=== PATIENT | female | born 1950 | race American Indian/Alaskan Native ===

== ENCOUNTER 2017-07-14 00:37 | Emergency (ER) | payer MEDICAID, MEDICARE ==
--- NOTE | 2017-07-14 00:57 | EDM.PDOC ---
ED HPI GENERAL MEDICAL PROBLEM - General Chief Complaint: General Stated Complaint: Shortness of breath, chest tightness Time Seen by Provider: 07/14/17 00:45 Source of Information: Reports: Patient, RN History Limitations: Reports: No Limitations - History of Present Illness INITIAL COMMENTS - FREE TEXT/NARRATIVE: 67 yr female presents with chest pressure midsternal for about 20 minutes tonight. States pain did radiate up to jaw and down left arm some. States pain is better now, but still has pressure. Pt is alert and no distress at this time. States hx of stent and is concerned of having heart pain. States hx of Hypertension and diabetic. States she didn't try any nitro at home. States it . EKG completed on admit. NSR w rate [address] elevation or depression. 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, Nitroglycerin Chest Pain Score (Numeric/FACES): 2 - Related Data Allergies Allergy/AdvReac Type Severity Reaction Status Date / Time sesame seed Allergy Anaphylactic Verified 07/14/17 01:03 Shock Home Meds: Home Meds Aspirin 325 mg PO DAILY 06/28/13 [History] Atenolol [Tenormin] 50 mg PO DAILY 06/28/13 [History] Ibuprofen 600 mg PO BID PRN 06/28/13 [History] Insulin Glargine,Hum.Rec.Anlog [Lantus Solostar] 42 unit SQ BEDTIME 06/28/13 [ History] Lisinopril 5 mg PO DAILY 06/28/13 [History] Metoclopramide [Reglan] 10 mg PO TIDAC 06/28/13 [History] atorvaSTATin [Lipitor] 80 mg PO BEDTIME 06/28/13 [History] metFORMIN [Glucophage] 1,000 mg PO BIDM 06/28/13 [History] oxyCODONE HCl/Acetaminophen [Percocet 7.5-325 mg Tablet] 1 each PO BID 06/28/13 [History] Omeprazole 20 mg PO DAILY 05/01/14 [History] Ranitidine [Zantac] 150 mg PO BID PRN 05/01/14 [History] SitaGLIPtin [Januvia] 100 mg PO DAILY 05/01/14 [History] glipiZIDE [Glipizide ER] 10 mg PO DAILY 05/01/14 [History] Calcium Carbonate/Vitamin D3 [Calcium 600 + D Tablet] 600 mg PO BID 05/22/15 [ History] Multivitamins/Iron/Folic Acid [Cerovite Advanced Formula] 1 tab-cap PO DAILY [History] Meclizine HCl 25 mg PO TID PRN 02/01/16 [History] Past Medical History Cardiovascular History: Reports: Angina, High Cholesterol, Stents Gastrointestinal History: Reports: Diverticulosis 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) Other OB/BYN History: hysterectomy Musculoskeletal History: Reports: Back Pain, Chronic Endocrine/Metabolic History: Reports: Diabetes, Type II Hematologic History: Reports: Anemia - Infectious Disease History Infectious Disease History: Reports: Chicken Pox, Shingles - Past Surgical History Cardiovascular Surgical History: Reports: Coronary Artery Stent Social & Family History - Family History Cardiac: Reports: [place] Respiratory: Reports: 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) Other Respiratory Family Hisory: fibrosis Endocrine/Metabolic: Reports: Diabetes, type II Oncologic: Reports: Lymphoma - Tobacco Use Smoking Status *Q: Current Every Day Smoker Years of Tobacco use: 30 Packs/Tins Daily: 0.5 Second Hand Smoke Exposure: No - Recreational Drug Use Recreational Drug Use: No ED ROS GENERAL - Review of Systems Review Of Systems: See Below Constitutional: Denies: Fever, Chills Cardiovascular: Reports: Chest Pain, Other (radiate down left arm) ED EXAM, GENERAL - Physical Exam Exam: See Below Exam Limited By: No Limitations General Appearance: Alert, WD/WN, No Apparent Distress Nose: Normal Inspection Throat/Mouth: Normal Inspection Head: Atraumatic, Normocephalic Neck: Supple, Non-Tender Respiratory/Chest: No Respiratory Distress, Lungs Clear, Normal Breath Sounds Cardiovascular: Regular Rate, Rhythm, No Edema, No Murmur GI/Abdominal: Normal Bowel Sounds, Soft, Non-Tender Extremities: No Pedal Edema Neurological: Alert, Oriented, Normal Cognition Skin Exam: Warm, Dry, Intact, Normal Color EKG INTERPRETATION EKG Date: 07/14/17 Time: 00:46 Rhythm: NSR Rate (Beats/Min): 84 P-Wave: Present QRS: Normal ST-T: Normal SC/PQ Interval: 174 Course - Vital Signs Last Recorded V/S: Last Vital Signs Temp 95.7 F 07/14/17 00:43 Pulse 78 07/14/17 01:29 Resp 16 07/14/17 01:29 BP 133/50 L 07/14/17 01:29 Pulse Ox 93 L 07/14/17 01:29 - Orders/Labs/Meds Orders: Active Orders 24 hr Category Date Time Status Cardiac Monitoring [RC] .As Directed Care 07/14/17 00:40 Active EKG Documentation Completion [RC] ASDIRECTED Care 07/14/17 00:47 Active Labs: Laboratory Tests 07/14/17 07/14/17 07/14/17 Range/Units 01:05 01:05 01:05 WBC 16.5 H (4.0-11.0) K/uL RBC 3.48 L (3.80-5.80) M/uL Hgb 9.5 L (11.5-16.5) g/dL Hct 29.1 L (37.0-47.0) % MCV 84 (76-96) fL MCH 27.3 (27.0-32.0) pg MCHC 32.6 (31.0-35.0) g/dL RDW 16.1 H (11.0-16.0) % Plt Count 326 (150-500) K/uL MPV 9.2 (6.0-10.0) fL Neut % (Auto) 63.0 (45.0-70.0) % Lymph % (Auto) 27.4 (20.0-40.0) % Weston % (Auto) 6.3 (3.0-10.0) % Eos % (Auto) 2.6 (1.0-5.0) % Baso % (Auto) 0.7 H (0.0-0.5) % Neut # (Auto) 10.40 H (2.00-7.50) K/uL Lymph # (Auto) 4.51 H (1.50-4.00) K/uL Weston # (Auto) 1.03 H (0.20-0.80) K/uL Eos # (Auto) 0.43 H (0.04-0.40) K/uL Baso # (Auto) 0.11 H (0.02-0.10) K/uL Sodium 138 (136-145) mmol/L Potassium 4.4 (3.5-5.1) mmol/L Chloride 104 (98-107) mmol/L Carbon Dioxide 23.0 (21.0-32.0) mmol/L Anion Gap 15.4 H (5.0-15.0) mmol/L BUN 17 (8-26) mg/dL Creatinine 1.11 H (0.55-1.02) mg/dL Est Cr Clr Drug Dosing 50.97 mL/min Estimated GFR (MDRD) 49 L (>60) MLS/MIN BUN/Creatinine Ratio 15.3 (6-25) Glucose 309 H D (74-100) mg/dL Calcium 8.4 L (8.5-10.1) mg/dL Total Bilirubin 0.2 D (0.0-1.0) mg/dL AST 21 (15-37) U/L ALT 22 (12-78) U/L Alkaline Phosphatase 97 (46-116) U/L Troponin I 0.019 (0.000-0.060) ng/mL B-Natriuretic Peptide 112 (0-125) pg/mL Total Protein 7.2 (6.4-8.2) g/dL Albumin 3.5 (3.4-5.0) g/dL Globulin 3.7 (2.2-4.2) g/dL Albumin/Globulin Ratio 0.9 (0.8-2.0) TSH, Ultra Sensitive 1.450 (0.358-3.740) uIU/mL - Re-Assessments/Exams Free Text/Narrative Re-Assessment/Exam: 07/14/17 01:48 Lab results reviewed w pt. Troponins and BNP are normal. TSH normal. EKG NSR w no ST elevation and no ST depression Leukocytosis noted and pt states this is normal for her. Anemia noted with Hgb 9.5. States she did have a bone marrow biopsy for this. Will notify PCP of visit tonight and need of refill of nitro to pharmacy today for pt. Recommend F/U with PCP. Pt states she wonders if she might need another stress test. Will mention to PCP in am. Recommend rest, hydration, and Return to ED if symptoms re-occur. Pt discharge ambulatory with her in no acute distress. Departure - Departure Time of Disposition: 01:52 Disposition: Home, Self-Care 01 Condition: Good Clinical Impression: Chest pressure - Discharge Information Referrals: PCP,None [Primary Care Provider] - Forms: ED Department Discharge Additional Instructions: Drink plenty of fluids and get plenty of rest. Should symptoms continue or worsen, return to be seen. 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 Keep all previously scheduled appointments, including lab work planned for this morning. Follow up in clinic with regular provider as needed. Call with any questions. - My Orders Last 24 Hours: My Active Orders 07/14/17 00:40 Cardiac Monitoring [RC] .As Directed 07/14/17 00:47 EKG Documentation Completion [RC] ASDIRECTED - Assessment/Plan Last 24 Hours: My Active Orders 07/14/17 00:40 Cardiac Monitoring [RC] .As Directed 07/14/17 00:47 EKG Documentation Completion [RC] ASDIRECTED
[2017-07-14 01:30] VITALS: BP 133/50
== END 2017-07-14 01:45 | disposition home or self-care (01) ==
LOC: LB.ED 00:37
DX: R07.89 Other chest pain (principal); E11.9 Type 2 diabetes mellitus without complications; F17.210 Nicotine dependence, cigarettes, uncomplicated; Z91.02 Food additives allergy status; Z79.82 Long term (current) use of aspirin; Z79.4 Long term (current) use of insulin; Z79.84 Long term (current) use of oral hypoglycemic drugs; Z79.899 Other long term (current) drug therapy; E78.00 Pure hypercholesterolemia, unspecified; Z90.710 Acquired absence of both cervix and uterus; Z95.5 Presence of coronary angioplasty implant and graft; Z86.79 Personal history of other diseases of the circulatory system
CPT/HCPCS: 36415; 80053; 83880; 84443; 84484; 85025; 93005; 99284; 99285-25

== ENCOUNTER 2018-01-26 01:06 | Emergency (ER) | payer MEDICARE ==
[2018-01-26] MEDS ORDERED: Acetaminophen/oxyCODONE 325-5 MG Tab ONE (01:15)
[2018-01-26] MEDS ORDERED: Amoxicillin/Clavulanate K 875-125 MG Tab ONE (01:15)
[2018-01-26 01:36] VITALS: BP 178/60
--- NOTE | 2018-01-26 10:21 | EDM.PDOC ---
ED HPI GENERAL MEDICAL PROBLEM - General Chief Complaint: General Stated Complaint: TOOTHACHE Time Seen by Provider: 01/26/18 01:30 Source of Information: Reports: Patient History Limitations: Reports: No Limitations - History of Present Illness INITIAL COMMENTS - FREE TEXT/NARRATIVE: This is a 67yo F here for left upper jaw pain. She has had poor dentition and has planned to have extractions done and then dentures but has not scheduled an appointment. Onset: Gradual Duration: Day(s):, Getting Worse Location: Reports: Other (gum/jaw left upper side) Quality: Reports: Ache Severity: Severe Improves with: Reports: None Worsens with: Reports: Movement Associated Symptoms: Reports: No Other Symptoms Left Upper Tooth/Teeth Pain Score (Numeric/FACES): 7 - Related Data Allergies Allergy/AdvReac Type Severity Reaction Status Date / Time sesame seed Allergy Anaphylactic Verified 07/21/17 16:32 Shock Home Meds: Home Meds Atenolol [Tenormin] 50 mg PO DAILY 06/28/13 [History] Ibuprofen 600 mg PO BID PRN 06/28/13 [History] Insulin Glargine,Hum.Rec.Anlog [Lantus Solostar] 36 unit SQ BEDTIME 06/28/13 [ History] Lisinopril 5 mg PO DAILY 06/28/13 [History] Metoclopramide [Reglan] 10 mg PO TIDAC 06/28/13 [History] atorvaSTATin [Lipitor] 80 mg PO BEDTIME 06/28/13 [History] metFORMIN [Glucophage] 1,000 mg PO BIDM 06/28/13 [History] Omeprazole 20 mg PO DAILY 05/01/14 [History] SitaGLIPtin [Januvia] 100 mg PO DAILY 05/01/14 [History] glipiZIDE [Glipizide ER] 10 mg PO DAILY 05/01/14 [History] Calcium Carbonate/Vitamin D3 [Calcium 600 + D Tablet] 600 mg PO BID 05/22/15 [ History] Multivitamins/Iron/Folic Acid [Cerovite Advanced Formula] 1 tab-cap PO DAILY [History] Meclizine HCl 25 mg PO TID PRN 02/01/16 [History] Past Medical History HEENT History: Reports: Impaired Vision Cardiovascular History: Reports: Angina, High Cholesterol, Stents Gastrointestinal History: Reports: Diverticulosis 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) Other OB/BYN History: hysterectomy Musculoskeletal History: Reports: Back Pain, Chronic Endocrine/Metabolic History: Reports: Diabetes, Type II Hematologic History: Reports: Anemia - Infectious Disease History Infectious Disease History: Reports: Chicken Pox, Shingles - Past Surgical History Cardiovascular Surgical History: Reports: Coronary Artery Stent Social & Family History - Family History Family Medical History: Noncontributory Cardiac: Reports: [place] Respiratory: Reports: 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) Other Respiratory Family Hisory: fibrosis Endocrine/Metabolic: Reports: Diabetes, type II Oncologic: Reports: Lymphoma - Tobacco Use Smoking Status *Q: Current Every Day Smoker Years of Tobacco use: 30 Packs/Tins Daily: 0.5 Used Tobacco, but Quit: No Second Hand Smoke Exposure: No - Caffeine Use Caffeine Use: Reports: Coffee - Recreational Drug Use Recreational Drug Use: No ED ROS GENERAL - Review of Systems Review Of Systems: ROS reveals no pertinent complaints other than HPI. ED EXAM, GENERAL - Physical Exam Exam: See Below Exam Limited By: No Limitations General Appearance: Alert, WD/WN, Moderate Distress Eye Exam: Bilateral Eye: EOMI, PERRL Ears: Normal External Exam Ear Exam: Bilateral Ear: TM normal Nose: Normal Inspection Throat/Mouth: Inflammation Head: Atraumatic, Normocephalic Neck: Normal Inspection Respiratory/Chest: No Respiratory Distress, Lungs Clear Cardiovascular: Normal Peripheral Pulses, Regular Rate, Rhythm Course - Vital Signs Last Recorded V/S: Last Vital Signs Temp 36.1 C 01/26/18 01:35 Pulse 66 01/26/18 01:35 Resp 18 01/26/18 01:35 BP 178/60 H 01/26/18 01:35 Pulse Ox 97 01/26/18 01:35 - Orders/Labs/Meds Meds: Medications Discontinued Medications Generic Name Dose Route Start Last Admin Trade Name Freq PRN Reason Stop Dose Admin Amoxicillin/Clavulanate Potassium 20 tab 01/26/18 01:15 Augmentin 875 Mg/125 Mg .ROUTE 01/26/18 01:16 .STK-MED ONE Oxycodone/Acetaminophen 10 tab 01/26/18 01:15 Percocet 325-5 Mg .ROUTE 01/26/18 01:16 .STK-MED ONE Departure - Departure Time of Disposition: 01:50 Disposition: Home, Self-Care 01 Condition: Fair Clinical Impression: Tooth infection - Discharge Information Instructions: Dental Abscess, Inpr-lo-Cigb Referrals: PCP,None [Primary Care Provider] - Forms: ED Department Discharge Additional Instructions: Take Augmentin 1 tab twice a day x 10 days, Oxycodone 5/325mg 1 tab every 4-6 hr as needed for pain - Problem List & Annotations (1) Tooth infection SNOMED Code(s): 627189129 Code(s): K04.7 - PERIAPICAL ABSCESS WITHOUT SINUS Status: Acute - Problem List Review Problem List Initiated/Reviewed/Updated: Yes - Assessment/Plan Plan: Counseled on antibiotics use and f/u dentist olvin. Discussed pain management as well. Patient will see her dentist today. F/u as needed if any further concerns.
== END 2018-01-26 01:48 | disposition home or self-care (01) ==
LOC: LB.ED 01:06
DX: K04.7 Periapical abscess without sinus (principal); E11.9 Type 2 diabetes mellitus without complications; F17.210 Nicotine dependence, cigarettes, uncomplicated; Z79.4 Long term (current) use of insulin; Z91.018 Allergy to other foods; Z79.899 Other long term (current) drug therapy
CPT/HCPCS: 99282; 99283; A9270-GY

== ENCOUNTER 2018-06-10 12:29 | Emergency (ER) | payer MEDICARE ==
[2018-06-10] MEDS ORDERED: Penicillin V Potassium 250 MG Tab ONE (13:00)
[2018-06-10] MEDS ORDERED: Acetaminophen/oxyCODONE 325-5 MG Tab ONE (13:00)
--- NOTE | 2018-06-10 19:52 | ER ---
Date of Service: 06/10/2018 HISTORY OF PRESENT ILLNESS: The patient is a 68-year-old female who comes in today with a chief complaint of a toothache that she has had for the last couple of days. She had called the dentist, but just has not gotten back to her. The patient does not have any fevers or chills. She does not have any allergies. She does, however, have a chronic pain prescription for Percocet 7.5/325. These are due on 06/15/2018, to be refilled. The patient notes she is out because she has been taking 3 a day instead of 2 because of her toothache. ALLERGIES: NKDA. PHYSICAL EXAMINATION: GENERAL: She is alert and oriented, in no apparent distress. VITAL SIGNS: Temperature is 98.3, blood pressure is 155/75, pulse is 65, O2 saturation is 98% on room air. HEENT: Generally unremarkable. The patient does have dental caries. Her pain is in the left lower jaw. NECK: Supple. No nodes. LUNGS: Clear. HEART: Regular sinus rhythm. ASSESSMENT: Dental abscess. PLAN: I have put the patient on some Penicillin VK 500 mg p.o. q.6 h. x10 days. The patient was given a dispense pack from the ER until she can fill the prescription on Monday after the holidays. The patient was also given a take-away pack of Percocet 5/ 325 one p.o. q.12 h. to replace some of her pain medicines. She will probably run out early , but will need to get them from Dr. Mosley as he is the one who prescribes the pain medicine. She was given 10 tablets to go from the ER today. KHUSHI/GÓMEZ /[id number] CHRIS
== END 2018-06-10 13:17 | disposition home or self-care (01) ==
LOC: LB.ED 12:29
DX: K04.7 Periapical abscess without sinus (principal)
CPT/HCPCS: 99282; A9270

== ENCOUNTER 2018-10-21 17:03 | Emergency (ER) | payer MEDICARE ==
[2018-10-21] MEDS ORDERED: Acetaminophen/HYDROcodone 325-5 MG Tab ONE (17:20)
[2018-10-21] MEDS ORDERED: Ketorolac 60 MG/2 ML SDV IM ONE (17:29)
[2018-10-21 17:51] VITALS: BP 140/69
--- NOTE | 2018-10-22 09:52 | EDM.PDOC ---
ED HPI GENERAL MEDICAL PROBLEM - General Chief Complaint: Back Pain or Injury Stated Complaint: back pain Time Seen by Provider: 10/21/18 17:30 Source of Information: Reports: Patient History Limitations: Reports: No Limitations - History of Present Illness INITIAL COMMENTS - FREE TEXT/NARRATIVE: According to patient she claims that she has been having severe low back pain since today morning. Pt was trying to bend forward and lifting some stuff from the ground when she felt a severe sharp pain in her lower back.Since then her back hurts when she turns or bends forward. Rates pain at 8/10. No radiation of pain into her legs. no tingling or numbness in the lower extremities. No incontinence or urine of stool. No other complaints. Onset: Today Onset Date: 10/21/18 Onset Time: 09:00 Duration: Getting Worse, Intermittent Location: Reports: Back Quality: Reports: Ache Severity: Moderate Improves with: Reports: Rest Worsens with: Reports: Movement Associated Symptoms: Denies: Confusion, Chest Pain, Cough, Diaphoresis, Fever/ Chills, Headaches, Nausea/Vomiting, Rash, Seizure, Shortness of Breath, Syncope , Weakness Back Pain Score (Numeric/FACES): 8 - Related Data Allergies Allergy/AdvReac Type Severity Reaction Status Date / Time sesame seed Allergy Anaphylactic Verified 09/28/18 21:01 Shock Home Meds: Home Meds Atenolol [Tenormin] 50 mg PO DAILY 06/28/13 [History] Ibuprofen 600 mg PO BID PRN 06/28/13 [History] Insulin Glargine,Hum.Rec.Anlog [Lantus Solostar] 36 unit SQ BEDTIME 06/28/13 [ History] Lisinopril 5 mg PO DAILY 06/28/13 [History] Metoclopramide [Reglan] 10 mg PO TIDAC 06/28/13 [History] atorvaSTATin [Lipitor] 80 mg PO BEDTIME 06/28/13 [History] metFORMIN [Glucophage] 1,000 mg PO BIDM 06/28/13 [History] Omeprazole 20 mg PO DAILY 05/01/14 [History] SitaGLIPtin [Januvia] 100 mg PO DAILY 05/01/14 [History] glipiZIDE [Glipizide ER] 10 mg PO DAILY 05/01/14 [History] Calcium Carbonate/Vitamin D3 [Calcium 600 + D Tablet] 600 mg PO BID 05/22/15 [ History] Multivitamins/Iron/Folic Acid [Cerovite Advanced Formula] 1 tab-cap PO DAILY [History] Meclizine HCl 25 mg PO TID PRN 02/01/16 [History] Past Medical History HEENT History: Reports: Impaired Vision Cardiovascular History: Reports: Angina, High Cholesterol, Stents Respiratory History: Reports: COPD Gastrointestinal History: Reports: Diverticulosis 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: , 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 Musculoskeletal History: Reports: Back Pain, Chronic Endocrine/Metabolic History: Reports: Diabetes, Type II Hematologic History: Reports: Anemia - Infectious Disease History Infectious Disease History: Reports: Chicken Pox - Past Surgical History Cardiovascular Surgical History: Reports: Coronary Artery Stent Female Surgical History: Reports: Hysterectomy Social & Family History - Family History Family Medical History: Noncontributory Cardiac: Reports: [place] Respiratory: Reports: 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) Other Respiratory Family Hisory: fibrosis Endocrine/Metabolic: Reports: Diabetes, type II Oncologic: Reports: Lymphoma - Caffeine Use Caffeine Use: Reports: Coffee, Soda ED ROS GENERAL - Review of Systems Review Of Systems: See Below Constitutional: Denies: Fever, Chills HEENT: Denies: Rhinitis, Throat Pain Respiratory: Denies: Cough, Sputum Cardiovascular: Denies: Chest Pain, Lightheadedness GI/Abdominal: Denies: Abdominal Pain, Nausea, Vomiting Musculoskeletal: Reports: Back Pain. Denies: Joint Pain, Joint Swelling Skin: Denies: Bruising, Pruritis, Rash Neurological: Denies: Numbness, Tingling, Gait Disturbance ED EXAM, GENERAL - Physical Exam Exam: See Below Exam Limited By: No Limitations General Appearance: Alert, WD/WN, No Apparent Distress Eye Exam: Bilateral Eye: EOMI, PERRL Ears: Normal External Exam, Normal Canal, Hearing Grossly Normal, Normal TMs Ear Exam: Bilateral Ear: Auricle Normal, Canal Normal, TM normal Nose: Normal Inspection, Normal Mucosa, No Blood Throat/Mouth: Normal Inspection, Normal Lips, Normal Teeth, Normal Gums, Normal Oropharynx, Normal Voice, No Airway Compromise Head: Atraumatic, Normocephalic Neck: Normal Inspection, Supple, Non-Tender, Full Range of Motion Respiratory/Chest: No Respiratory Distress, Lungs Clear, Normal Breath Sounds, No Accessory Muscle Use, Chest Non-Tender Cardiovascular: Normal Peripheral Pulses, Regular Rate, Rhythm, No Edema, No Gallop, No JVD, No Murmur, No Rub GI/Abdominal: Normal Bowel Sounds, Soft, Non-Tender, No Organomegaly, No Distention, No Abnormal Bruit, No Mass Back Exam: Decreased Range of Motion, Muscle Spasm, Paraspinal Tenderness ( lumbar region). No: Vertebral Tenderness Course - Vital Signs Text/Narrative:: Pt reassured that she has developed acute spasm of the lower back muscles from bending froward. She did receive toradol 60mg IM. Also she has been advised to alternate toradol 10mg with vicodin 5/325 every 4 hrs for next 5 days. Intermittent heat to the back. avoid bending, twisting or tuning movements of the back. Pain should gradually improve. Last Recorded V/S: Last Vital Signs Temp 98 F 10/21/18 17:49 Pulse 72 10/21/18 17:49 Resp 16 10/21/18 17:49 BP 140/69 10/21/18 17:49 Pulse Ox 100 10/21/18 17:49 - Orders/Labs/Meds Meds: Medications Discontinued Medications Generic Name Dose Route Start Last Admin Trade Name Freq PRN Reason Stop Dose Admin Ketorolac Tromethamine 60 mg 10/21/18 17:29 10/21/18 17:36 Toradol IM 10/21/18 17:30 60 mg ONETIME ONE Administration Departure - Departure Time of Disposition: 18:00 Disposition: Home, Self-Care 01 Condition: Fair Clinical Impression: Back muscle spasm - Discharge Information *PRESCRIPTION DRUG MONITORING PROGRAM REVIEWED*: Not Applicable *COPY OF PRESCRIPTION DRUG MONITORING REPORT IN PATIENT NICOLE: Not Applicable Instructions: Acetaminophen; Hydrocodone tablets or capsules, Ketorolac injection, Ketorolac tablets Referrals: PCP,None [Primary Care Provider] - Forms: ED Department Discharge Care Plan Goals: Take vicoden tonight at bedftime. Then alternate ketorlac with vicoden as directed. Take one then 4 hours later take the other. Use warm packs no more than 20 minutes of an hour 4 x day. - Problem List & Annotations (1) Back muscle spasm SNOMED Code(s): 728472464 Code(s): M62.830 - MUSCLE SPASM OF BACK Status: Acute - Problem List Review Problem List Initiated/Reviewed/Updated: Yes - Assessment/Plan Assessment:: Back muscle spasm Plan: Pt reassured that she has developed acute spasm of the lower back muscles from bending froward. She did receive toradol 60mg IM. Also she has been advised to alternate toradol 10mg with vicodin 5/325 every 4 hrs for next 5 days. Intermittent heat to the back. avoid bending, twisting or tuning movements of the back. Pain should gradually improve.
== END 2018-10-21 17:40 | disposition home or self-care (01) ==
LOC: LB.ED 17:03
DX: M62.830 Muscle spasm of back (principal); E78.00 Pure hypercholesterolemia, unspecified; J44.9 Chronic obstructive pulmonary disease, unspecified; E11.9 Type 2 diabetes mellitus without complications; Z91.018 Allergy to other foods; Z95.5 Presence of coronary angioplasty implant and graft; Z79.84 Long term (current) use of oral hypoglycemic drugs; Z79.4 Long term (current) use of insulin; Z79.899 Other long term (current) drug therapy
CPT/HCPCS: 96372; 99283-25; A9270-GY; J1885

== ENCOUNTER 2019-05-06 23:58 | Emergency (ER) | payer MEDICARE ==
[~2019-05-06 23:58] MED LIST: Azithromycin 250 MG Tab ONE
[2019-05-07] MEDS ORDERED: Morphine 2 MG/ML Syringe IVPUSH ONE (00:53)
--- NOTE | 2019-05-07 00:54 | EDM.PDOC ---
ED HPI GENERAL MEDICAL PROBLEM - General Chief Complaint: General Stated Complaint: SOB Time Seen by Provider: 05/07/19 00:20 Source of Information: Reports: Patient History Limitations: Reports: No Limitations - History of Present Illness INITIAL COMMENTS - FREE TEXT/NARRATIVE: According to patient she claims she has been having dull chest pain since yesterday. PAin is over the lower sternal border in the mid chest. Rates her pain at 5-6/10. No radiation of pain. Pain does not get worse with exertion. No nausea or vomiting. Pt claims she does feel shortness of breath, feeling of not getting enough air. No exertional dyspnea.No wheezing. No fever or cough. No sweating . Pt did get concerned as she does have CAD and had stent placement in 2003. Onset: Gradual Onset Date: 05/06/19 Duration: Constant Location: Reports: Chest Quality: Reports: Ache Severity: Mild Improves with: Reports: None Worsens with: Reports: None Associated Symptoms: Denies: Confusion, Chest Pain, Cough, Diaphoresis, Fever/ Chills, Nausea/Vomiting, Rash, Seizure, Shortness of Breath, Syncope, Weakness - Related Data Allergies Allergy/AdvReac Type Severity Reaction Status Date / Time sesame seed Allergy Anaphylactic Verified 09/28/18 21:01 Shock Home Meds: Home Meds Atenolol [Tenormin] 50 mg PO DAILY 06/28/13 [History] Ibuprofen 600 mg PO BID PRN 06/28/13 [History] Lisinopril 5 mg PO DAILY 06/28/13 [History] Metoclopramide [Reglan] 10 mg PO TIDAC 06/28/13 [History] atorvaSTATin [Lipitor] 80 mg PO BEDTIME 06/28/13 [History] metFORMIN [Glucophage] 1,000 mg PO BIDM 06/28/13 [History] Omeprazole 20 mg PO DAILY 05/01/14 [History] SitaGLIPtin [Januvia] 100 mg PO DAILY 05/01/14 [History] glipiZIDE [Glipizide ER] 10 mg PO DAILY 05/01/14 [History] Calcium Carbonate/Vitamin D3 [Calcium 600 + D Tablet] 600 mg PO BID 05/22/15 [ History] Multivitamins/Iron/Folic Acid [Cerovite Advanced Formula] 1 tab-cap PO DAILY [History] Past Medical History HEENT History: Reports: Impaired Vision Cardiovascular History: Reports: Angina, High Cholesterol, Stents Respiratory History: Reports: COPD Gastrointestinal History: Reports: Diverticulosis 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: , 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) Other PURCHASING MANAGER/SALES History: hysterectomy Musculoskeletal History: Reports: Back Pain, Chronic Endocrine/Metabolic History: Reports: Diabetes, Type II Hematologic History: Reports: Anemia - Infectious Disease History Infectious Disease History: Reports: Chicken Pox - Past Surgical History Cardiovascular Surgical History: Reports: Coronary Artery Stent Female Surgical History: Reports: Hysterectomy Social & Family History - Family History Family Medical History: Noncontributory Cardiac: Reports: [place] Respiratory: Reports: 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) Other Respiratory Family Hisory: fibrosis Endocrine/Metabolic: Reports: Diabetes, type II Oncologic: Reports: Lymphoma - Caffeine Use Caffeine Use: Reports: Coffee, Soda ED ROS GENERAL - Review of Systems Review Of Systems: See Below Constitutional: Denies: Fever, Chills, Weakness, Diaphoresis HEENT: Denies: Ear Pain, Rhinitis, Throat Pain Respiratory: Reports: Shortness of Breath. Denies: Wheezing, Pleuritic Chest Pain, Cough, Sputum Cardiovascular: Reports: Chest Pain. Denies: Dyspnea on Exertion, Lightheadedness, Palpitations Endocrine: Denies: Fatigue GI/Abdominal: Denies: Abdominal Pain, Constipation, Diarrhea, Nausea, Vomiting : Denies: Dysuria, Frequency Musculoskeletal: Denies: Arm Pain, Joint Pain Skin: Denies: Bruising, Pruritis, Rash Neurological: Denies: Confusion, Dizziness, Numbness, Tingling, Weakness Psychiatric: Denies: Agitation, Depression ED EXAM, GENERAL - Physical Exam Exam: See Below Exam Limited By: No Limitations General Appearance: Alert, WD/WN, No Apparent Distress Eye Exam: Bilateral Eye: EOMI, PERRL Ears: Normal External Exam, Normal Canal, Hearing Grossly Normal, Normal TMs Ear Exam: Bilateral Ear: Auricle Normal, Canal Normal, TM normal Nose: Normal Inspection, Normal Mucosa, No Blood Throat/Mouth: Normal Inspection, Normal Lips, Normal Teeth, Normal Gums, Normal Oropharynx, Normal Voice, No Airway Compromise Head: Atraumatic, Normocephalic Neck: Normal Inspection, Supple, Non-Tender, Full Range of Motion Respiratory/Chest: No Respiratory Distress, Lungs Clear, Normal Breath Sounds, No Accessory Muscle Use, Chest Non-Tender Cardiovascular: Normal Peripheral Pulses, Regular Rate, Rhythm, No Edema, No Gallop, No JVD, No Murmur, No Rub GI/Abdominal: Normal Bowel Sounds, Soft, Non-Tender, No Organomegaly, No Distention, No Abnormal Bruit, No Mass Extremities: Normal Inspection, Normal Range of Motion, Non-Tender, Normal Capillary Refill, No Pedal Edema Neurological: Alert, Oriented, CN II-XII Intact, Normal Cognition, Normal Gait, Normal Reflexes, No Motor/Sensory Deficits Psychiatric: Normal Affect, Normal Mood Skin Exam: Warm, Intact EKG INTERPRETATION EKG Date: 05/07/19 Rhythm: NSR Rate (Beats/Min): 68 [place]: Normal P-Wave: Present QRS: Normal ST-T: Normal QT: Normal Course - Vital Signs Text/Narrative:: Pt claims she has been having dull achy precardiac chest pain since yesterday. Pain does not get worse with exertion. Her vitals are stable. Her EKG is in normal sinus rhythm. HE CBC shows white count of 17K . CMP is stable. Troponin is negative.Chest X-ray appear normal other than there might a a infiltratein left upper lobe. Pt reassured that she has non-specific chest pain, considering that her chest pain has been going on for 2 days, if she has cardiac injury her troponin should be elevated. Pt did receive Morphine 2mg Iv, and her pain resolved. This might be chest wall pain. But her white count is elevated, hence I have empirically covered her with Zpak for possible early.left upper lobe pneumonia. I have reassured patient and advised to followup in clinic. Last Recorded V/S: Last Vital Signs Temp 98.1 F 05/07/19 01:15 Pulse 68 05/07/19 01:15 Resp 18 05/07/19 01:15 BP 162/62 H 05/07/19 01:15 Pulse Ox 95 05/07/19 01:15 - Orders/Labs/Meds Orders: Active Orders 24 hr Category Date Time Status EKG Documentation Completion [RC] ASDIRECTED Care 05/07/19 00:44 Ordered Chest 1V Frontal [CR] Stat Exams 05/07/19 00:45 Ordered Labs: Laboratory Tests 05/07/19 05/07/19 Range/Units 00:44 00:44 WBC 17.7 H (4.0-11.0) K/uL RBC 4.32 (3.80-5.80) M/uL Hgb 11.7 (11.5-16.5) g/dL Hct 35.8 L (37.0-47.0) % MCV 83 (76-96) fL MCH 27.1 (27.0-32.0) pg MCHC 32.7 (31.0-35.0) g/dL RDW 15.1 (11.0-16.0) % Plt Count 341 (150-500) K/uL MPV 9.1 (6.0-10.0) fL Neut % (Auto) 64.0 (45.0-70.0) % Lymph % (Auto) 26.6 (20.0-40.0) % [place] % (Auto) 6.3 (3.0-10.0) % Eos % (Auto) 2.5 (1.0-5.0) % Baso % (Auto) 0.6 H (0.0-0.5) % Neut # (Auto) 11.29 H (2.00-7.50) K/uL Lymph # (Auto) 4.71 H (1.50-4.00) K/uL [place] # (Auto) 1.12 H (0.20-0.80) K/uL Eos # (Auto) 0.45 H (0.04-0.40) K/uL Baso # (Auto) 0.11 H (0.02-0.10) K/uL Sodium 139 (136-145) mmol/L Potassium 3.4 L (3.5-5.1) mmol/L Chloride 105 (98-107) mmol/L Carbon Dioxide 24.1 (21.0-32.0) mmol/L Anion Gap 13.3 (5.0-15.0) mmol/L BUN 17 D (8-26) mg/dL Creatinine 0.87 (0.55-1.02) mg/dL Est Cr Clr Drug Dosing TNP Estimated GFR (MDRD) > 60 (>60) MLS/MIN BUN/Creatinine Ratio 19.5 (6-25) Glucose 172 H (74-100) mg/dL Calcium 9.2 (8.5-10.1) mg/dL Total Bilirubin 0.3 D (0.0-1.0) mg/dL AST 12 L (15-37) U/L ALT 20 (12-78) U/L Alkaline Phosphatase 102 (46-116) U/L Troponin I < 0.017 (0.000-0.060) ng/mL Total Protein 8.0 (6.4-8.2) g/dL Albumin 3.9 (3.4-5.0) g/dL Globulin 4.1 (2.2-4.2) g/dL Albumin/Globulin Ratio 1.0 (0.8-2.0) Meds: Medications Discontinued Medications Generic Name Dose Route Start Last Admin Trade Name Lei PRN Reason Stop Dose Admin Morphine Sulfate 2 mg 05/07/19 00:53 05/07/19 00:49 Morphine IVPUSH 05/07/19 00:54 2 mg ONETIME ONE Administration Departure - Departure Time of Disposition: 01:35 Disposition: Home, Self-Care 01 Condition: Fair Clinical Impression: Chest pain, Leucocytosis - Discharge Information *PRESCRIPTION DRUG MONITORING PROGRAM REVIEWED*: Not Applicable *COPY OF PRESCRIPTION DRUG MONITORING REPORT IN PATIENT NICOLE: Not Applicable Forms: ED Department Discharge Additional Instructions: Pt claims she has been having dull achy precardiac chest pain since yesterday. Pain does not get worse with exertion. Her vitals are stable. Her EKG is in normal sinus rhythm. HE CBC shows white count of 17K . CMP is stable. Troponin is negative.Chest X-ray appear normal other than there might a a infiltratein left upper lobe. Pt reassured that she has non-specific chest pain, considering that her chest pain has been going on for 2 days, if she has cardiac injury her troponin should be elevated. Pt did receive Morphine 2mg Iv, and her pain resolved. This might be chest wall pain. But her white count is elevated, hence I have empirically covered her with Zpak for possible early left upper lobe pneumonia. I have reassured patient and advised to followup in clinic. - Problem List & Annotations (1) Chest pain SNOMED Code(s): 49883815 Code(s): R07.9 - CHEST PAIN, UNSPECIFIED Status: Acute - Problem List Review Problem List Initiated/Reviewed/Updated: Yes - My Orders Last 24 Hours: My Active Orders 05/07/19 00:44 EKG Documentation Completion [RC] ASDIRECTED 05/07/19 00:45 Chest 1V Frontal [CR] Stat - Assessment/Plan Last 24 Hours: My Active Orders 05/07/19 00:44 EKG Documentation Completion [RC] ASDIRECTED 05/07/19 00:45 Chest 1V Frontal [CR] Stat Assessment:: Chest pain- Negative troponin Plan: Pt claims she has been having dull achy precardiac chest pain since yesterday. Pain does not get worse with exertion. Her vitals are stable. Her EKG is in normal sinus rhythm. HE CBC shows white count of 17K . CMP is stable. Troponin is negative.Chest X-ray appear normal other than there might a a infiltratein left upper lobe. Pt reassured that she has non-specific chest pain, considering that her chest pain has been going on for 2 days, if she has cardiac injury her troponin should be elevated. Pt did receive Morphine 2mg Iv, and her pain resolved. This might be chest wall pain. But her white count is elevated, hence I have empirically covered her with Zpak for possible early left upper lobe pneumonia. I have reassured patient and advised to followup in clinic.
[2019-05-07 01:19] VITALS: BP 162/62; PULSE 68
--- NOTE | 2019-05-07 07:33 | CR ---
DATE OF SERVICE: 05/07/19 CLINICAL DATA: Chest pain. PORTABLE CHEST: Comparison is made to a prior exam dated 10/25/18. The heart size is normal. There is linear fibrosis in the left lung base. The lungs otherwise clear. No pneumothorax. No pleural effusions. No significant changes from the prior exam. No evidence of acute intrathoracic disease. [id number] [facility]
== END 2019-05-07 01:38 | disposition home or self-care (01) ==
LOC: LB.ED 23:58
DX: R07.89 Other chest pain (principal); D72.829 Elevated white blood cell count, unspecified; E78.00 Pure hypercholesterolemia, unspecified; J44.9 Chronic obstructive pulmonary disease, unspecified; E11.9 Type 2 diabetes mellitus without complications; Z91.018 Allergy to other foods; Z79.899 Other long term (current) drug therapy; Z79.84 Long term (current) use of oral hypoglycemic drugs
CPT/HCPCS: 36415; 71045; 80053; 84484; 85025; 93005; 99285; A9270; J2270; 99284

== ENCOUNTER 2019-08-20 12:45 | Emergency (ER) | payer MEDICARE ==
[2019-08-20 12:59] VITALS: BP 152/78; PULSE 86
--- NOTE | 2019-08-20 15:56 | ER ---
REASON FOR EMERGENCY ROOM VISIT: Right Ankle Swelling. HISTORY: This 69-year-old woman with type 2 diabetes, awoke yesterday morning with swelling and some slight redness over the lateral aspect of her right ankle. It persisted throughout the day and she noticed that it was a bit more reddened last evening and it was slightly painful. She denies any history of injury or trauma to the right ankle and she has no history of any arthritis that she is aware of. This morning, the pain was worse and redness seems to have increased overnight, prompting her to visit the emergency room. She was able to walk in on her own, although she states that it is somewhat painful when she is ambulating. She did have a temperature of 100 degrees this morning. PAST MEDICAL HISTORY: Significant for: 1. Type 2 diabetes, on oral agents. 2. Coronary artery disease with stent placement in 2003. 3. Hypercholesterolemia. 4. COPD. 5. Diverticulosis. 6. Hysterectomy. 7. Back pain. ALLERGIES: SESAME SEEDS, BUT NONE TO MEDICATIONS. MEDICATIONS: Her medications reviewed. Please see electronic medical record. They include the following. Metoclopramide, lisinopril, ibuprofen, calcium and vitamin D3, atenolol, metformin, glipizide, atorvastatin, sitagliptin (Januvia), and omeprazole. FAMILY HISTORY: Reviewed and noncontributory. REVIEW OF SYSTEMS: Pertinent positives and negatives as listed in the HPI. PHYSICAL EXAMINATION: GENERAL: Reveals a pleasant, thin woman in no acute distress. VITAL SIGNS: She is afebrile. Pulse rate of 86, blood pressure 152/78, respiratory rate 16, O2 sats 96% on room air. EXTREMITIES: She has vitiligo, that is noticeable about both hands. She has no joint deformities. Her right ankle has an area of some mild localized edema over right lateral malleolus, overlying this is an area of redness and warmth consistent with cellulitis. She has a tiny 1-2 mm superficial scratch in the center, right over her lateral malleolus on the right side. There is no crepitus. There is no actual joint effusion. Passive range of motion is nonpainful. She has no joint effusion. Her feet are warm and pink, and she has palpable pulses. IMPRESSION: Cellulitis, right ankle. PLAN: Keflex 500 mg p.o. q.6 hours x7 days. Should her symptoms not improve within the next couple of days, she should be rechecked. Otherwise, I have asked her to follow up with her provider, Dr. Mosley next week when she should be near or at the completion of her antibiotic course. I advised her to soak her right foot and ankle in warm soapy water for 20 minutes 3 times a day. Should she develop any increasing fevers, she should notify us. All questions were answered. She understands and agrees with this plan. ANDRY /[id number]
== END 2019-08-20 13:25 | disposition home or self-care (01) ==
LOC: LB.ED 12:45
DX: L03.115 Cellulitis of right lower limb (principal); J44.9 Chronic obstructive pulmonary disease, unspecified
CPT/HCPCS: 99283-25

== ENCOUNTER 2020-06-13 10:10 | Emergency (ER) | payer MEDICARE ==
--- NOTE | 2020-06-13 11:16 | EDM.PDOC ---
ED HPI GENERAL MEDICAL PROBLEM - General Chief Complaint: Neuro Symptoms/Deficits Stated Complaint: dizziness Time Seen by Provider: 06/13/20 11:00 Source of Information: Reports: Patient History Limitations: Reports: No Limitations - History of Present Illness INITIAL COMMENTS - FREE TEXT/NARRATIVE: Pt states that she woke up around midnight with extreme dizziness, and visual changes, feels like she is going to fall. Had a brief pain to back of her head which has mostly resolved other than feeling sore to upper neck and posterior scalp area. States she feels as if she will lose balance and fall. - Related Data Allergies Allergy/AdvReac Type Severity Reaction Status Date / Time sesame seed Allergy Anaphylactic Verified 08/20/19 13:00 Shock Home Meds: Home Meds Atenolol [Tenormin] 50 mg PO DAILY 06/28/13 [History] Ibuprofen 600 mg PO BID PRN 06/28/13 [History] Lisinopril 5 mg PO DAILY 06/28/13 [History] Metoclopramide [Reglan] 10 mg PO TIDAC 06/28/13 [History] atorvaSTATin [Lipitor] 80 mg PO BEDTIME 06/28/13 [History] metFORMIN [Glucophage] 1,000 mg PO BIDM 06/28/13 [History] Omeprazole 20 mg PO DAILY 05/01/14 [History] SitaGLIPtin [Januvia] 100 mg PO DAILY 05/01/14 [History] glipiZIDE [Glipizide ER] 10 mg PO DAILY 05/01/14 [History] Calcium Carbonate/Vitamin D3 [Calcium 600 + D Tablet] 600 mg PO BID 05/22/15 [History] Multivitamins/Iron/Folic Acid [Cerovite Advanced Formula] 1 tab-cap PO DAILY 05/22/15 [History] Past Medical History HEENT History: Reports: Impaired Vision Cardiovascular History: Reports: Angina, High Cholesterol, Stents Respiratory History: Reports: COPD Gastrointestinal History: Reports: Diverticulosis 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: , 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) Other ROUSTABOUT SUPERVISOR History: hysterectomy Musculoskeletal History: Reports: Back Pain, Chronic Endocrine/Metabolic History: Reports: Diabetes, Type II Hematologic History: Reports: Anemia - Infectious Disease History Infectious Disease History: Reports: Chicken Pox - Past Surgical History Cardiovascular Surgical History: Reports: Coronary Artery Stent Female Surgical History: Reports: Hysterectomy Social & Family History - Family History Family Medical History: Noncontributory Cardiac: Reports: [place] Respiratory: Reports: 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) Other Respiratory Family Hisory: fibrosis Endocrine/Metabolic: Reports: Diabetes, type II Oncologic: Reports: Lymphoma - Caffeine Use Caffeine Use: Reports: Coffee, Soda ED ROS GENERAL - Review of Systems Review Of Systems: See Below Constitutional: Denies: Fever, Malaise, Weakness HEENT: Reports: No Symptoms, Vertigo, Vision Change. Denies: Ear Pain Respiratory: Reports: No Symptoms, Shortness of Breath Cardiovascular: Reports: No Symptoms. Denies: Chest Pain Endocrine: Reports: No Symptoms GI/Abdominal: Reports: No Symptoms. Denies: Abdominal Pain Skin: Reports: No Symptoms Neurological: Reports: Headache, Difficulty Walking, Gait Disturbance. Denies: Numbness, Paresthesia, Seizure, Syncope, Tingling, Trouble Speaking, Weakness, Change in Speech Psychiatric: Reports: No Symptoms Hematologic/Lymphatic: Reports: No Symptoms ED EXAM, DIZZINESS - Physical Exam Exam: See Below Exam Limited By: No Limitations General Appearance: Alert, WD/WN, Mild Distress Nystagmus: No: worsens with head to L, worsens with head to R Ears: Normal External Exam, Normal Canal, Hearing Grossly Normal Nose: Normal Inspection Throat/Mouth: Normal Inspection, Normal Lips, Normal Teeth, Normal Gums Head Exam: Atraumatic, Normocephalic. No: Facial Swelling, Facial Tenderness Vertigo: constant Neck: Normal Inspection, Supple, Non-Tender, Full Range of Motion Respiratory/Chest: No Respiratory Distress, Lungs Clear, Normal Breath Sounds Cardiovascular: Normal Peripheral Pulses, Regular Rate, Rhythm Neurological: Alert, Normal Mood/Affect, Normal Dorsiflexion, CN II-XII Intact, Normal Plantar Flexion, No Motor/Sensory Deficits, Oriented x 3, Ataxia Back Exam: Normal Inspection Extremities: Normal Inspection, Normal Range of Motion Psychiatric: Normal Affect, Normal Mood Skin Exam: Warm, Dry Course - Vital Signs Last Recorded V/S: Last Vital Signs Temp 98.2 F 06/13/20 12:03 Pulse 77 06/13/20 12:03 Resp 16 06/13/20 12:03 BP 148/77 H 06/13/20 12:03 Pulse Ox 99 06/13/20 12:03 - Orders/Labs/Meds Orders: Active Orders 24 hr Category Date Time Status Blood Glucose Check, Bedside [] ONETIME Care 06/13/20 11:09 Active Head wo Cont [CT] Stat Exams 06/13/20 11:09 Taken DRUG SCREEN, URINE [URCHEM] Stat Lab 06/13/20 11:29 Ordered Meclizine [Antivert] Med 06/13/20 12:08 Ordered 25 mg PO DAILY PRN Medication Orders Meclizine HCl (Antivert) 25 mg PO DAILY PRN PRN Reason: Dizziness Labs: Laboratory Tests 06/13/20 06/13/20 06/13/20 Range/Units 11:15 11:15 11:15 WBC 11.3 H D (4.0-11.0) K/uL RBC 4.09 (3.80-5.80) M/uL Hgb 11.3 L (11.5-16.5) g/dL Hct 34.4 L (37.0-47.0) % MCV 84 (76-96) fL MCH 27.6 (27.0-32.0) pg MCHC 32.8 (31.0-35.0) g/dL RDW 14.7 (11.0-16.0) % Plt Count 320 (150-500) K/uL MPV 9.2 (6.0-10.0) fL Neut % (Auto) 52.5 (45.0-70.0) % Lymph % (Auto) 35.3 (20.0-40.0) % [place] % (Auto) 7.2 (3.0-10.0) % Eos % (Auto) 4.0 (1.0-5.0) % Baso % (Auto) 1.0 H (0.0-0.5) % Neut # (Auto) 5.96 (2.00-7.50) K/uL Lymph # (Auto) 4.00 (1.50-4.00) K/uL [place] # (Auto) 0.82 H (0.20-0.80) K/uL Eos # (Auto) 0.45 H (0.04-0.40) K/uL Baso # (Auto) 0.11 H (0.02-0.10) K/uL Sodium 139 (136-145) mmol/L Potassium 4.0 (3.5-5.1) mmol/L Chloride 104 (98-107) mmol/L Carbon Dioxide 24.7 (21.0-32.0) mmol/L Anion Gap 14.3 (5.0-15.0) mmol/L BUN 13 D (8-26) mg/dL Creatinine 0.94 (0.55-1.02) mg/dL Est Cr Clr Drug Dosing TNP Estimated GFR (MDRD) 59 L (>60) MLS/MIN BUN/Creatinine Ratio 13.8 (6-25) Glucose 179 H (74-100) mg/dL Calcium 8.6 (8.5-10.1) mg/dL Total Bilirubin 0.3 (0.0-1.0) mg/dL AST 14 L (15-37) U/L ALT 21 (12-78) U/L Alkaline Phosphatase 102 (46-116) U/L Total Protein 7.3 (6.4-8.2) g/dL Albumin 3.6 (3.4-5.0) g/dL Globulin 3.7 (2.2-4.2) g/dL Albumin/Globulin Ratio 1.0 (0.8-2.0) Ethyl Alcohol < 3.0 (<3.0) mg/dL Meds: Medications Generic Name Dose Route Start Last Admin Trade Name Freq PRN Reason Stop Dose Admin Meclizine HCl 25 mg 06/13/20 12:08 Antivert PO DAILY PRN Dizziness - Re-Assessments/Exams Free Text/Narrative Re-Assessment/Exam: 06/13/20 11:15 Pt seemed to feel less dizzy. States has had a prior dx of Vertigo Rx written for Meclizine 25mg while in ER and was given 6 tablets S Free Text/Narrative Re-Assessment/Exam: 06/13/20 12:18 CBC, chem and drug screen - essentially normal Departure - Departure Time of Disposition: 12:20 Disposition: Home, Self-Care 01 Condition: Good Clinical Impression: Vertigo - Discharge Information *PRESCRIPTION DRUG MONITORING PROGRAM REVIEWED*: Not Applicable *COPY OF PRESCRIPTION DRUG MONITORING REPORT IN PATIENT NICOLE: Not Applicable Instructions: Dizziness Referrals: PCP,None [Primary Care Provider] - Forms: ED Department Discharge Sepsis Event Note (ED) - Focused Exam Vital Signs: Vital Signs Temp Pulse Resp BP Pulse Ox 06/13/20 12:03 98.2 F 77 16 148/77 H 99 - My Orders Last 24 Hours: My Active Orders 06/13/20 11:09 Blood Glucose Check, Bedside [RC] ONETIME Head wo Cont [CT] Stat 06/13/20 11:29 DRUG SCREEN, URINE [URCHEM] Stat 06/13/20 12:08 Meclizine [Antivert] 25 mg PO DAILY PRN - Assessment/Plan Last 24 Hours: My Active Orders 06/13/20 11:09 Blood Glucose Check, Bedside [RC] ONETIME Head wo Cont [CT] Stat 06/13/20 11:29 DRUG SCREEN, URINE [URCHEM] Stat 06/13/20 12:08 Meclizine [Antivert] 25 mg PO DAILY PRN
[2020-06-13 12:04] VITALS: BP 148/77; PULSE 77
--- NOTE | 2020-06-14 07:57 | CT ---
Date of Service: 06/13/20 Clinical Data: dizziness UNENHANCED BRAIN CT: Multislice acquisition through the brain without IV contrast was performed. Comparison is made to a prior exam dated 06/28/13. No masses or mass effect. No intracranial hemorrhage. No evidence of acute or subacute infarct. No osseous abnormalities. IMPRESSION: No acute intracranial abnormalities. [id number] [facility]
== END 2020-06-13 12:36 | disposition home or self-care (01) ==
LOC: LB.ED 10:10
DX: R42 Dizziness and giddiness (principal); R51 Headache; E78.00 Pure hypercholesterolemia, unspecified; J44.9 Chronic obstructive pulmonary disease, unspecified; E11.9 Type 2 diabetes mellitus without complications; Z91.018 Allergy to other foods; Z79.899 Other long term (current) drug therapy; Z90.710 Acquired absence of both cervix and uterus
CPT/HCPCS: 36415; 70450; 80053; 80307; 85025; 99284; A9270

== ENCOUNTER 2020-11-25 16:21 | Emergency (ER) | payer MEDICARE ==
[2020-11-25 16:34] VITALS: BP 166/75; PULSE 82
--- NOTE | 2020-11-25 16:55 | EDM.PDOC ---
ED HPI GENERAL MEDICAL PROBLEM - General Chief Complaint: General Stated Complaint: EYE HURT Time Seen by Provider: 11/25/20 16:40 Source of Information: Reports: Patient History Limitations: Reports: No Limitations - History of Present Illness INITIAL COMMENTS - FREE TEXT/NARRATIVE: 70 year old female with PMH HTN, diabetes presents to ED after noticing her right eye was red. Denies any injury, FB, CP, SOB, abd pain, fever, cough, or n/v/d. She states she was drinking coffee, looked in the mirror to find her right eye was red. There is no pain or vision changes, she states she is "freaked out". Onset: Today Location: Reports: Face, Other (no pain) Severity: Mild Improves with: Reports: None Worsens with: Reports: None Associated Symptoms: Reports: No Other Symptoms Right Eye Pain Score (Numeric/FACES): 2 - Related Data Allergies Allergy/AdvReac Type Severity Reaction Status Date / Time sesame seed Allergy Anaphylactic Verified 11/25/20 16:31 Shock Home Meds: Home Meds Atenolol [Tenormin] 50 mg PO DAILY 06/28/13 [History] Ibuprofen 600 mg PO BID PRN 06/28/13 [History] Lisinopril 5 mg PO DAILY 06/28/13 [History] Metoclopramide [Reglan] 10 mg PO TIDAC 06/28/13 [History] atorvaSTATin [Lipitor] 80 mg PO BEDTIME 06/28/13 [History] metFORMIN [Glucophage] 1,000 mg PO BIDM 06/28/13 [History] Omeprazole 20 mg PO DAILY 05/01/14 [History] SitaGLIPtin [Januvia] 100 mg PO DAILY 05/01/14 [History] glipiZIDE [Glipizide ER] 10 mg PO DAILY 05/01/14 [History] Calcium Carbonate/Vitamin D3 [Calcium 600 + D Tablet] 600 mg PO BID 05/22/15 [History] Multivitamins/Iron/Folic Acid [Cerovite Advanced Formula] 1 tab-cap PO DAILY 05/22/15 [History] Past Medical History HEENT History: Reports: Impaired Vision Other HEENT History: hx of vertigo Cardiovascular History: Reports: Angina, High Cholesterol, Stents Respiratory History: Reports: COPD Gastrointestinal History: Reports: Diverticulosis PARTITION NOTCHER History: Reports: , 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) Other PARTITION NOTCHER History: hysterectomy Musculoskeletal History: Reports: Back Pain, Chronic Endocrine/Metabolic History: Reports: Diabetes, Type II Hematologic History: Reports: Anemia - Infectious Disease History Infectious Disease History: Reports: Chicken Pox - Past Surgical History Cardiovascular Surgical History: Reports: Coronary Artery Stent GI Surgical History: Reports: None Female Surgical History: Reports: Hysterectomy Musculoskeletal Surgical History: Reports: None Social & Family History - Family History Family Medical History: No Pertinent Family History Cardiac: Reports: [place] Respiratory: Reports: 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) Other Respiratory Family Hisory: fibrosis Endocrine/Metabolic: Reports: Diabetes, type II Oncologic: Reports: Lymphoma - Tobacco Use Used Tobacco, but Quit: No - Caffeine Use Caffeine Use: Reports: Coffee, Soda ED ROS GENERAL - Review of Systems Review Of Systems: See Below Constitutional: Reports: No Symptoms HEENT: Reports: Other (subconjunctival hemmorhage noted to right eye medial). Denies: Contact Lenses, Eye Discharge, Eye Pain, Glasses, Vision Change Respiratory: Reports: No Symptoms Cardiovascular: Reports: No Symptoms Endocrine: Reports: No Symptoms GI/Abdominal: Reports: No Symptoms : Reports: No Symptoms Musculoskeletal: Reports: No Symptoms Skin: Reports: No Symptoms Neurological: Reports: No Symptoms Psychiatric: Reports: No Symptoms Hematologic/Lymphatic: Reports: No Symptoms Immunologic: Reports: No Symptoms ED EXAM, GENERAL - Physical Exam Exam: See Below Exam Limited By: No Limitations General Appearance: Alert, No Apparent Distress Eye Exam: Right Eye: Conjunctival Injection, Other (hemmorhage noted to medial aspect of right eye, no pain, no discharge, no changes in vision), Left Eye: Normal Inspection, Bilateral Eye: PERRL Ears: Normal External Exam, Normal Canal Ear Exam: Bilateral Ear: Auricle Normal, Canal Normal, TM normal Nose: Normal Inspection, No Blood Throat/Mouth: Normal Inspection, Normal Lips, Normal Gums, Normal Oropharynx, Normal Voice Head: Atraumatic Neck: Normal Inspection, Non-Tender, Full Range of Motion Respiratory/Chest: No Respiratory Distress, Lungs Clear, Normal Breath Sounds Cardiovascular: Regular Rate, Rhythm, No Edema, No Murmur GI/Abdominal: Non-Tender (Female) Exam: Deferred Rectal (Female) Exam: Deferred Back Exam: Full Range of Motion Extremities: Normal Range of Motion, Non-Tender Neurological: Alert, Oriented, Normal Cognition, Normal Gait, No Motor/Sensory Deficits Psychiatric: Normal Affect, Normal Mood Skin Exam: Warm, Dry, Intact Lymphatic: No Adenopathy Course - Vital Signs Last Recorded V/S: Last Vital Signs Temp 98.2 F 11/25/20 16:32 Pulse 82 11/25/20 16:32 Resp 18 11/25/20 16:32 BP 166/75 H 11/25/20 16:32 Pulse Ox 98 11/25/20 16:32 Departure - Departure Time of Disposition: 16:55 Disposition: Home, Self-Care 01 Clinical Impression: Subconjunctival hemorrhage of right eye - Discharge Information *PRESCRIPTION DRUG MONITORING PROGRAM REVIEWED*: Not Applicable *COPY OF PRESCRIPTION DRUG MONITORING REPORT IN PATIENT NICOLE: Not Applicable Instructions: Subconjunctival Hemorrhage Referrals: Dinesh Mosley MD [Primary Care Provider] - Forms: ED Department Discharge Care Plan Goals: Return to ER if severe pain or visual changes occur. Sepsis Event Note (ED) - Evaluation Sepsis Screening Result: No Definite Risk - Focused Exam Vital Signs: Vital Signs Temp Pulse Resp BP Pulse Ox 11/25/20 16:32 98.2 F 82 18 166/75 H 98
== END 2020-11-25 16:47 | disposition home or self-care (01) ==
LOC: LB.ED 16:21
DX: H11.31 Conjunctival hemorrhage, right eye (principal); E11.9 Type 2 diabetes mellitus without complications; I10 Essential (primary) hypertension; E78.00 Pure hypercholesterolemia, unspecified; J44.9 Chronic obstructive pulmonary disease, unspecified; Z79.84 Long term (current) use of oral hypoglycemic drugs; Z79.899 Other long term (current) drug therapy; Z91.018 Allergy to other foods
CPT/HCPCS: 99282

== ENCOUNTER 2021-09-22 21:40 | Emergency (ER) | payer MEDICARE ==
[2021-09-22 22:21] VITALS: BP 156/59; PULSE 72
[2021-09-22] MEDS: Ketorolac 60 MG/2 ML SDV IM ONE (22:27)
--- NOTE | 2021-09-22 22:58 | EDM.PDOC ---
ED HPI GENERAL MEDICAL PROBLEM - General Chief Complaint: Abdominal Pain Stated Complaint: abd pain after taking prep Time Seen by Provider: 09/22/21 22:10 - History of Present Illness INITIAL COMMENTS - FREE TEXT/NARRATIVE: Pt is here with C/O pain that wraps around her pelvic area, involving her low back. It started about 1 hour ago. She has been doing a colon cleansing for a Colonoscopy tomorrow, starting the process at noon today. She denies any bloody stool or pain with BM's. She denies any falls or injuries. She has not taken any of her usual meds today, which include Percocet for chronic pain. - Related Data Allergies Allergy/AdvReac Type Severity Reaction Status Date / Time sesame seed Allergy Anaphylactic Verified 09/22/21 22:29 Shock Home Meds: Home Meds Atenolol [Tenormin] 50 mg PO DAILY 06/28/13 [History] Ibuprofen 600 mg PO BID PRN 06/28/13 [History] Lisinopril 5 mg PO DAILY 06/28/13 [History] Metoclopramide [Reglan] 10 mg PO TIDAC 06/28/13 [History] metFORMIN [Glucophage] 1,000 mg PO BIDM 06/28/13 [History] Omeprazole 20 mg PO DAILY 05/01/14 [History] SitaGLIPtin [Januvia] 100 mg PO DAILY 05/01/14 [History] glipiZIDE [Glipizide ER] 10 mg PO DAILY 05/01/14 [History] Calcium Carbonate/Vitamin D3 [Calcium 600 + D Tablet] 600 mg PO BID 05/22/15 [History] Aspirin 325 mg PO DAILY 09/16/21 [History] Nitroglycerin [Nitrostat] 0.4 mg SL ASDIRECTED PRN 09/16/21 [History] atorvaSTATin [Lipitor] 80 mg PO DAILY 09/16/21 [History] oxyCODONE HCl/Acetaminophen [Endocet 7.5-325 mg Tablet] 1 tab PO BID 09/16/21 [History] Past Medical History HEENT History: Reports: Cataract Other HEENT History: hx of vertigo Cardiovascular History: Reports: Angina, High Cholesterol, Stents Respiratory History: Reports: COPD Gastrointestinal History: Reports: Diverticulosis [employer] History: Reports: , 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) Other [employer] History: hysterectomy Musculoskeletal History: Reports: Back Pain, Chronic Endocrine/Metabolic History: Reports: Diabetes, Type II Hematologic History: Reports: Anemia - Infectious Disease History Infectious Disease History: Reports: Chicken Pox - Past Surgical History Cardiovascular Surgical History: Reports: Coronary Artery Stent GI Surgical History: Reports: None Female Surgical History: Reports: Hysterectomy Musculoskeletal Surgical History: Reports: None Social & Family History - Family History Family Medical History: No Pertinent Family History Cardiac: Reports: [place] Respiratory: Reports: 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) Other Respiratory Family Hisory: fibrosis Endocrine/Metabolic: Reports: Diabetes, type II Oncologic: Reports: Lymphoma - Tobacco Use Tobacco Use Status *Q: Current Every Day Tobacco User Years of Tobacco use: 40 Packs/Tins Daily: 10 Second Hand Smoke Exposure: No - Caffeine Use Caffeine Use: Reports: Coffee - Recreational Drug Use Recreational Drug Use: No ED ROS GENERAL - Review of Systems Review Of Systems: Comprehensive ROS is negative, except as noted in HPI. Musculoskeletal: Reports: Other (Low back and Abd pain.) ED EXAM, GENERAL - Physical Exam Exam: See Below GI/Abdominal: Other (she has lower Abd pain with palpation, but no gaurding. The pain wraps around to her low back.) Course - Vital Signs Last Recorded V/S: Last Vital Signs Temp 97.7 F 09/22/21 22:14 Pulse 72 09/22/21 22:14 Resp 18 09/22/21 22:14 BP 156/59 H 09/22/21 22:14 Pulse Ox 98 09/22/21 22:14 - Orders/Labs/Meds Meds: Medications Discontinued Medications Generic Name Dose Route Start Last Admin Trade Name Lei PRN Reason Stop Dose Admin Ketorolac Tromethamine 60 mg 09/22/21 22:23 09/22/21 22:27 Ketorolac 60 Mg/2 Ml Sdv IM 09/22/21 22:24 60 mg ONETIME ONE Administration - Re-Assessments/Exams Free Text/Narrative Re-Assessment/Exam: 09/22/21 22:56 Toradol 60 mg was given IM. She wants to go home and I feel this is reasonable. She can take a pain pill at home tonite if needed. She has no further questions. Departure - Departure Time of Disposition: 22:50 Disposition: Home, Self-Care 01 Clinical Impression: Pain of pelvic girdle - Discharge Information *PRESCRIPTION DRUG MONITORING PROGRAM REVIEWED*: Yes *COPY OF PRESCRIPTION DRUG MONITORING REPORT IN PATIENT NICOLE: Yes Forms: ED Department Discharge Additional Instructions: Patient to return to Hospital if pain worsens Return to hospital in the AM for Colonoscopy. Take home medications as directed. Sepsis Event Note (ED) - Evaluation Sepsis Screening Result: No Definite Risk - Focused Exam Vital Signs: Vital Signs Temp Pulse Resp BP Pulse Ox 09/22/21 22:14 97.7 F 72 18 156/59 H 98
== END 2021-09-22 22:56 | disposition home or self-care (01) ==
LOC: LB.ED 21:40
DX: R10.2 Pelvic and perineal pain (principal); J44.9 Chronic obstructive pulmonary disease, unspecified; E78.00 Pure hypercholesterolemia, unspecified; E11.9 Type 2 diabetes mellitus without complications; Z95.5 Presence of coronary angioplasty implant and graft; Z91.018 Allergy to other foods; Z79.899 Other long term (current) drug therapy; Z79.82 Long term (current) use of aspirin; Z72.0 Tobacco use
CPT/HCPCS: 96372; 99283; J1885

== ENCOUNTER 2022-02-06 14:13 | Emergency (ER) | payer MEDICARE ==
[2022-02-06 14:55] VITALS: BP 133/54; PULSE 72
== END 2022-02-06 15:35 | disposition home or self-care (01) ==
LOC: LB.ED 14:13
DX: R42 Dizziness and giddiness (principal); E78.00 Pure hypercholesterolemia, unspecified; J44.9 Chronic obstructive pulmonary disease, unspecified; E11.9 Type 2 diabetes mellitus without complications; Z72.0 Tobacco use; Z79.82 Long term (current) use of aspirin; Z91.048 Other nonmedicinal substance allergy status; Z79.84 Long term (current) use of oral hypoglycemic drugs; Z79.899 Other long term (current) drug therapy
CPT/HCPCS: 36415; 80053; 81001; 85025; 99282; 99284; A9270-GY

== ENCOUNTER 2022-07-27 17:46 | Emergency (ER) | payer MEDICARE ==
[2022-07-27] MEDS: Nitroglycerin 0.4 MG Tab.SL SL PRN ×3 (17:50→18:06)
[2022-07-27] MEDS ORDERED: Aspirin 81 MG Tab.Chew PO ONE (17:54)
[2022-07-27 18:45] VITALS: PULSE 87
[2022-07-27 18:50] VITALS: BP 152/79
== END 2022-07-27 22:19 | disposition home or self-care (01) ==
LOC: LB.ED 17:46
DX: R07.9 Chest pain, unspecified (principal); J44.9 Chronic obstructive pulmonary disease, unspecified; E11.9 Type 2 diabetes mellitus without complications; Z91.018 Allergy to other foods; Z79.899 Other long term (current) drug therapy; Z79.84 Long term (current) use of oral hypoglycemic drugs; Z79.82 Long term (current) use of aspirin; Z90.710 Acquired absence of both cervix and uterus
CPT/HCPCS: 36415; 71045; 80053; 84484; 85025; 85610; 93005; 99285; A9270

== ENCOUNTER 2023-04-16 17:29 | Emergency (ER) | payer MEDICARE ==
[2023-04-16 18:03] VITALS: BP 147/89; PULSE 60
[2023-04-16 18:20] LABS: BASOPHILS ABSOLUTE AUTO 0.08 K/uL (0.02-0.10); BASOPHILS PERCENT AUTO 0.6 % (0.0-0.5); EOSINOPHILS PERCENT AUTO 2.2 % (1.0-5.0); HEMATOCRIT 33.7 % (37.0-47.0); HEMOGLOBIN 11.3 g/dL (11.5-16.5); LYMPHOCYTES ABSOLUTE AUTO 4.81 K/uL (1.50-4.00); LYMPHOCYTES PERCENT AUTO 35.3 % (20.0-40.0); MEAN CORPUSCULAR HEMOGLOBIN 29.4 pg (27.0-32.0); MEAN CORPUSCULAR HGB CONC 33.5 g/dL (31.0-35.0); MEAN CORPUSCULAR VOLUME 88 fL (76-96); MEAN PLATELET VOLUME 8.8 fL (6.0-10.0); MONOCYTES ABSOLUTE AUTO 0.93 K/uL (0.20-0.80); MONOCYTES PERCENT AUTO 6.8 % (3.0-10.0); NEUTROPHILS ABSOLUTE AUTO 7.52 K/uL (2.00-7.50); NEUTROPHILS PERCENT AUTO 55.1 % (45.0-70.0); PLATELET COUNT,PLT 267 K/uL (150-500); RED BLOOD CELL COUNT 3.85 M/uL (3.80-5.80); RED CELL DISTRIBUTION WIDTH 14.1 % (11.0-16.0); WHITE BLOOD CELL COUNT,WBC 13.6 K/uL (4.0-11.0)
[2023-04-16 18:39] LABS: A/G RATIO 0.9 (0.8-2.0); ALANINE AMINOTRANSFERASE,ALT 17 U/L (12-78); ALBUMIN 3.7 g/dL (3.4-5.0); ANION GAP 17.2 mmol/L (5.0-15.0); ASPARTATE AMNIOTRANSFERASE,AST 10 U/L (15-37); BILIRUBIN TOTAL 0.3 mg/dL (0.0-1.0); BLOOD UREA NITROGEN,BUN 16 mg/dL (8-26); BUN/CREATININE RATIO 15.5 (6-25); CALCIUM 9.1 mg/dL (8.5-10.1); CARBON DIOXIDE,CO2 23.9 mmol/L (21.0-32.0); CHLORIDE,CL 103 mmol/L (98-107); CREATININE 1.03 mg/dL (0.55-1.02); ESTIMATED GFR 58 mL/min (>60); GLUCOSE RANDOM 103 mg/dL (74-100); POTASSIUM,K 5.1 mmol/L (3.5-5.1); PROTEIN TOTAL,TP 7.6 g/dL (6.4-8.2); SODIUM,NA 139 mmol/L (136-145)
== END 2023-04-16 18:49 | disposition home or self-care (01) ==
LOC: LB.ED 17:29
DX: R53.1 Weakness (principal); E11.9 Type 2 diabetes mellitus without complications; I10 Essential (primary) hypertension; K21.9 Gastro-esophageal reflux disease without esophagitis; E78.00 Pure hypercholesterolemia, unspecified; J44.9 Chronic obstructive pulmonary disease, unspecified; Z79.899 Other long term (current) drug therapy; Z79.82 Long term (current) use of aspirin; Z79.84 Long term (current) use of oral hypoglycemic drugs; Z91.018 Allergy to other foods; Z95.5 Presence of coronary angioplasty implant and graft; Z79.51 Long term (current) use of inhaled steroids
CPT/HCPCS: 36415; 80053; 82947; 85025; 93005; 99285

== ENCOUNTER 2024-01-21 19:33 | Emergency (ER) | payer MEDICARE ==
[2024-01-21] MEDS: Gabapentin 300 MG Cap PO ONE (20:36)
[2024-01-21 20:53] LABS: HEMATOCRIT 32.1 % (37.0-47.0); HEMOGLOBIN 10.4 g/dL (11.5-16.5); MEAN CORPUSCULAR HEMOGLOBIN 27.5 pg (27.0-32.0); MEAN CORPUSCULAR HGB CONC 32.4 g/dL (31.0-35.0); MEAN PLATELET VOLUME 9.2 fL (6.0-10.0); RED BLOOD CELL COUNT 3.78 M/uL (3.80-5.80); RED CELL DISTRIBUTION WIDTH 15.1 % (11.0-16.0); WHITE BLOOD CELL COUNT,WBC 13.5 K/uL (4.0-11.0)
[2024-01-21 21:03] LABS: ANION GAP 12.7 mmol/L (5.0-15.0); BUN/CREATININE RATIO 18.6 (6-25); CALCIUM 8.7 mg/dL (8.5-10.1); CARBON DIOXIDE,CO2 24.5 mmol/L (21.0-32.0); CREATININE 1.02 mg/dL (0.55-1.02); EST CRCL DRUG DOSING (CG) 51.95 mL/min; POTASSIUM,K 4.2 mmol/L (3.5-5.1)
[2024-01-21 21:12] VITALS: BP 148/61; PULSE 51
[2024-01-21 21:29] LABS: HEMOGLOBIN A1C 7.9 % (< 5.7)
== END 2024-01-21 21:30 | disposition home or self-care (01) ==
LOC: LB.ED 19:33
DX: E11.42 Type 2 diabetes mellitus with diabetic polyneuropathy (principal); E78.00 Pure hypercholesterolemia, unspecified; J44.9 Chronic obstructive pulmonary disease, unspecified; Z86.19 Personal history of other infectious and parasitic diseases; Z79.84 Long term (current) use of oral hypoglycemic drugs; Z91.018 Allergy to other foods; Z79.82 Long term (current) use of aspirin; Z79.899 Other long term (current) drug therapy; Z90.710 Acquired absence of both cervix and uterus
CPT/HCPCS: 36415; 80048; 82947; 83036; 85027; 99284; A9270-GY

== ENCOUNTER 2025-01-16 08:50 | Day surgery (SDC) | payer MEDICARE ==
[2025-01-16] MEDS: Sodium Chloride 0.9% 1,000 ML IV SCH (09:20)
[2025-01-16 09:21] VITALS: PULSE 65
[2025-01-16] MEDS ORDERED: Propofol 200 MG/20 ML SDV ONE (10:30)
[2025-01-16 10:57] VITALS: BP 159/59
== END 2025-01-16 12:25 | disposition home or self-care (01) ==
LOC: LB.SDS 08:50
PROVIDERS: ATTEND Surgery
DX: K29.50 Unspecified chronic gastritis without bleeding (principal); K31.A0 Gastric intestinal metaplasia, unspecified; K31.89 Other diseases of stomach and duodenum; K44.9 Diaphragmatic hernia without obstruction or gangrene; D64.9 Anemia, unspecified; K21.9 Gastro-esophageal reflux disease without esophagitis; I10 Essential (primary) hypertension; E11.42 Type 2 diabetes mellitus with diabetic polyneuropathy; E78.5 Hyperlipidemia, unspecified; F17.200 Nicotine dependence, unspecified, uncomplicated; Z79.84 Long term (current) use of oral hypoglycemic drugs; Z79.82 Long term (current) use of aspirin; Z79.899 Other long term (current) drug therapy; Z85.038 Personal history of other malignant neoplasm of large intestine
CPT/HCPCS: 43239; 82947; 88305; 88341; 88342; J2704; J7030

== ENCOUNTER 2025-02-21 18:02 | Emergency (ER) | payer MEDICAID, MEDICARE ==
[2025-02-21] MEDS: Nitroglycerin 0.4 MG Tab.SL SL PRN (18:33)
[2025-02-21 18:52] LABS: BASOPHILS PERCENT AUTO 0.8 % (0.0-0.5); EOSINOPHILS ABSOLUTE AUTO 0.39 K/uL (0.04-0.40); EOSINOPHILS PERCENT AUTO 3.3 % (1.0-5.0); HEMATOCRIT 32.1 % (37.0-47.0); HEMOGLOBIN 10.1 g/dL (11.5-16.5); LYMPHOCYTES ABSOLUTE AUTO 4.09 K/uL (1.50-4.00); LYMPHOCYTES PERCENT AUTO 34.5 % (20.0-40.0); MEAN CORPUSCULAR HEMOGLOBIN 26.2 pg (27.0-32.0); MEAN CORPUSCULAR HGB CONC 31.5 g/dL (31.0-35.0); MEAN CORPUSCULAR VOLUME 83 fL (76-96); MEAN PLATELET VOLUME 9.7 fL (6.0-10.0); MONOCYTES ABSOLUTE AUTO 0.96 K/uL (0.20-0.80); MONOCYTES PERCENT AUTO 8.1 % (3.0-10.0); NEUTROPHILS ABSOLUTE AUTO 6.32 K/uL (2.00-7.50); NEUTROPHILS PERCENT AUTO 53.3 % (45.0-70.0); PLATELET COUNT,PLT 330 K/uL (150-500); RED BLOOD CELL COUNT 3.85 M/uL (3.80-5.80); RED CELL DISTRIBUTION WIDTH 16.2 % (11.0-16.0); WHITE BLOOD CELL COUNT,WBC 11.9 K/uL (4.0-11.0)
[2025-02-21 19:02] LABS: A/G RATIO 0.9 (0.8-2.0); ALBUMIN 3.5 g/dL (3.4-5.0); ANION GAP 2.7 mmol/L (5.0-15.0); BILIRUBIN TOTAL 0.2 mg/dL (0.0-1.0); BUN/CREATININE RATIO 16.1 (6-25); CALCIUM 8.9 mg/dL (8.5-10.1); CARBON DIOXIDE,CO2 23.8 mmol/L (21.0-32.0); CREATININE 1.12 mg/dL (0.55-1.02); EST CRCL DRUG DOSING (CG) 45.48 mL/min; MAGNESIUM 1.5 mg/dL (1.8-2.4); POTASSIUM,K 3.5 mmol/L (3.5-5.1); PROTEIN TOTAL,TP 7.4 g/dL (6.4-8.2)
[2025-02-21 19:03] LABS: INR 0.9 (1.0-3.5); PTT,PARTIAL THROMBOPLSTIN TIME 26.7 SECONDS (24.4-33.2)
[2025-02-21 19:05] LABS: PROTHROMBIN TIME 9.8 sec (9.0-11.5)
[2025-02-21] MEDS: Magnesium Sulfat/D5W 1GM/100ML 1 GM in Premix Bag 1 BAG IV ONE (19:20)
[2025-02-21 19:26] LABS: APPEARANCE,URINE CLEAR (CLEAR); BILIRUBIN,URINE NEGATIVE (NEGATIVE); COLOR,URINE YELLOW; GLUCOSE,URINE >=1000 mg/dL (NEGATIVE); KETONES,URINE NEGATIVE (NEGATIVE); OCCULT BLOOD,URINE NEGATIVE (NEGATIVE); PH,URINE 6.5 (5.0-8.0); PROTEIN,URINE 30 mg/dL (NEGATIVE)
[2025-02-21 19:27] LABS: LEUKOCYTE ESTERASE,URINE NEGATIVE (NEGATIVE); NITRITE,URINE NEGATIVE (NEGATIVE); UROBILINOGEN,URINE 0.2 E.U./dL (0.2-1.0)
[2025-02-21 19:32] LABS: RBC,URINE 0-5 /HPF; WBC,URINE 0-5 /HPF
[2025-02-21] MEDS: Metoprolol Tartrate 25 MG Tab PO ONE (22:54)
[2025-02-21 22:55] VITALS: BP 162/52; PULSE 62
[2025-02-21] MEDS: NS + KCl 20mEq/L 1,000 ML IV SCH (22:55)
[2025-02-21] MEDS ORDERED: 50% Dextrose in Water 50 ML Syringe IVPUSH PRN (22:57)
[2025-02-21] MEDS ORDERED: Glucagon,Human Recombinant 1 MG Vial IM PRN (22:57)
[2025-02-21] MEDS: Insulin Regular, Human 100 Units/ML 10 ML Vial SUBCUT ONE (23:02)
== END 2025-02-21 23:15 ==
LOC: LB.ED 18:02
DX: I20.0 Unstable angina (principal); I10 Essential (primary) hypertension; E78.00 Pure hypercholesterolemia, unspecified; K44.9 Diaphragmatic hernia without obstruction or gangrene; K21.9 Gastro-esophageal reflux disease without esophagitis; E11.9 Type 2 diabetes mellitus without complications; F17.200 Nicotine dependence, unspecified, uncomplicated; Z90.49 Acquired absence of other specified parts of digestive tract; Z90.710 Acquired absence of both cervix and uterus; Z91.018 Allergy to other foods; Z79.84 Long term (current) use of oral hypoglycemic drugs; Z79.82 Long term (current) use of aspirin; Z79.899 Other long term (current) drug therapy
CPT/HCPCS: 36415; 71045; 80053; 81001; 82947; 83735; 84484; 85025; 85610; 85730; 93005; 96365; 96375; 99285-25; A0425; A0428; A9270-GY; J3475; J3480

== ENCOUNTER 2025-03-09 10:03 | Emergency (ER) | payer MEDICARE ==
[2025-03-09 10:41] LABS: BASOPHILS ABSOLUTE AUTO 0.08 K/uL (0.02-0.10); BASOPHILS PERCENT AUTO 0.6 % (0.0-0.5); EOSINOPHILS ABSOLUTE AUTO 0.25 K/uL (0.04-0.40); EOSINOPHILS PERCENT AUTO 1.9 % (1.0-5.0); HEMATOCRIT 20.5 % (37.0-47.0); LYMPHOCYTES ABSOLUTE AUTO 2.93 K/uL (1.50-4.00); LYMPHOCYTES PERCENT AUTO 22.6 % (20.0-40.0); MEAN CORPUSCULAR HEMOGLOBIN 28.2 pg (27.0-32.0); MEAN CORPUSCULAR HGB CONC 32.7 g/dL (31.0-35.0); MEAN CORPUSCULAR VOLUME 86 fL (76-96); MEAN PLATELET VOLUME 9.9 fL (6.0-10.0); MONOCYTES ABSOLUTE AUTO 0.97 K/uL (0.20-0.80); MONOCYTES PERCENT AUTO 7.5 % (3.0-10.0); NEUTROPHILS ABSOLUTE AUTO 8.71 K/uL (2.00-7.50); NEUTROPHILS PERCENT AUTO 67.4 % (45.0-70.0); PLATELET COUNT,PLT 562 K/uL (150-500); RED BLOOD CELL COUNT 2.38 M/uL (3.80-5.80); RED CELL DISTRIBUTION WIDTH 15.9 % (11.0-16.0); WHITE BLOOD CELL COUNT,WBC 12.9 K/uL (4.0-11.0)
[2025-03-09 10:48] LABS: HEMOGLOBIN 6.7 g/dL (11.5-16.5)
[2025-03-09 11:10] LABS: A/G RATIO 0.7 (0.8-2.0); ALBUMIN 2.8 g/dL (3.4-5.0); ANION GAP 15.5 mmol/L (5.0-15.0); BILIRUBIN TOTAL 0.3 mg/dL (0.0-1.0); BUN/CREATININE RATIO 21.2 (6-25); CALCIUM 8.7 mg/dL (8.5-10.1); CARBON DIOXIDE,CO2 21.9 mmol/L (21.0-32.0); CREATININE 1.18 mg/dL (0.55-1.02); EST CRCL DRUG DOSING (CG) 41.72 mL/min; POTASSIUM,K 5.4 mmol/L (3.5-5.1); PROTEIN TOTAL,TP 6.7 g/dL (6.4-8.2); TROPONIN I HIGH SENSITIVITY 13.9 pg/ml (<=60.4)
[2025-03-09] MEDS: Furosemide 40 MG/4 ML VIAL IVPUSH ONE (16:12)
[2025-03-09 18:26] VITALS: PULSE 60
[2025-03-09 19:10] VITALS: BP 176/59
== END 2025-03-09 19:05 | disposition home or self-care (01) ==
LOC: LB.ED 10:03
DX: D62 Acute posthemorrhagic anemia (principal); I10 Essential (primary) hypertension; E11.9 Type 2 diabetes mellitus without complications; K21.9 Gastro-esophageal reflux disease without esophagitis; Z95.1 Presence of aortocoronary bypass graft; Z90.49 Acquired absence of other specified parts of digestive tract; Z79.84 Long term (current) use of oral hypoglycemic drugs; Z79.899 Other long term (current) drug therapy; Z79.82 Long term (current) use of aspirin; Z79.02 Long term (current) use of antithrombotics/antiplatelets; Z91.048 Other nonmedicinal substance allergy status; Z90.710 Acquired absence of both cervix and uterus
CPT/HCPCS: 36415; 36430; 71045; 80053; 83735; 84484; 85025; 86850; 86900; 86901; 86920; 86922; 93005; 96374; 99285; J1938; P9016

== ENCOUNTER 2025-03-18 14:14 | Inpatient (IN) | payer MEDICARE ==
[2025-03-18] MEDS ORDERED: Sodium Chloride 0.9% 10 ML Syringe FLUSH PRN (14:39)
[2025-03-18] MEDS: Albuterol 0.083% 2.5 MG/3 ML Neb Soln NEB ONE (14:47)
[2025-03-18 15:03] LABS: HEMATOCRIT 32.3 % (37.0-47.0); HEMOGLOBIN 10.4 g/dL (11.5-16.5); MEAN CORPUSCULAR HEMOGLOBIN 27.5 pg (27.0-32.0); MEAN CORPUSCULAR HGB CONC 32.2 g/dL (31.0-35.0); MEAN PLATELET VOLUME 9.9 fL (6.0-10.0); RED BLOOD CELL COUNT 3.78 M/uL (3.80-5.80); RED CELL DISTRIBUTION WIDTH 15.8 % (11.0-16.0); WHITE BLOOD CELL COUNT,WBC 8.6 K/uL (4.0-11.0)
[2025-03-18 15:21] LABS: ANION GAP 18.9 mmol/L (5.0-15.0); BUN/CREATININE RATIO 34.8 (6-25); CARBON DIOXIDE,CO2 19.6 mmol/L (21.0-32.0); CREATININE 0.89 mg/dL (0.55-1.02); POTASSIUM,K 4.5 mmol/L (3.5-5.1)
[2025-03-18 15:24] LABS: MAGNESIUM 1.6 mg/dL (1.8-2.4)
[2025-03-18 15:28] LABS: EST CRCL DRUG DOSING (CG) 54.42 mL/min
[2025-03-18] MEDS: Sodium Chloride 0.9% 50 ML SDV FLUSH ONE (16:39)
[2025-03-18] MEDS: Iopamidol 755 Mg/ML 100 ML Bottle IV SCH (16:39)
[2025-03-18] MEDS: hydrALAZINE 20 MG/ML SDV IVPUSH ONE ×2 (16:59→18:54)
[2025-03-18] MEDS: Magnesium Sulfat/D5W 1GM/100ML 1 GM in Premix Bag 1 BAG IV ONE ×2 (16:59→20:10)
[2025-03-18] MEDS: Lactated Ringers 1,000 ML IV SCH (17:36)
[2025-03-18] MEDS: Furosemide 40 MG/4 ML VIAL IVPUSH ONE ×2 (17:40→20:06)
[2025-03-18] MEDS ORDERED: Glucagon,Human Recombinant 1 MG Vial IM PRN (17:57)
[2025-03-18] MEDS ORDERED: 50% Dextrose in Water 50 ML Syringe IVPUSH PRN (17:57)
[2025-03-18] MEDS ORDERED: Non-Formulary Medication 1 Each (Insulin Aspart [Insulin Aspart Flexpen] 100 UNIT/ML Insul SUBCUT SCH (18:00)
[2025-03-18] MEDS: Albuterol 6.7 GM Inhaler INH PRN (19:28)
[2025-03-18] MEDS: Albuterol/Ipratropium 3.0-0.5 MG/3 ML Neb Soln INH SCH (19:29)
[2025-03-18] MEDS: Budesonide 0.5 MG/2 ML Neb Susp INH SCH (19:29)
[2025-03-18] MEDS: Ondansetron 4 MG/2 ML SDV IVPUSH PRN (19:30)
[2025-03-18] MEDS: Acetaminophen/oxyCODONE 325-5 MG Tab PO SCH (19:45)
[2025-03-18] MEDS: Insulin Glargine,Human Rec. Analog 100 Units/ML 3 ML Pen SUBCUT SCH (19:47)
[2025-03-18] MEDS: Ondansetron 4 MG Tab.DIS PO SCH (19:50)
[2025-03-18] MEDS ORDERED: ACETAMINOPHEN PO SCH ×2 (20:00)
[2025-03-18] MEDS ORDERED: OXYCODONE HCL PO SCH ×2 (20:00)
[2025-03-18] MEDS: Insulin Lispro 100 Unit/ML 3 ML KwikPen SUBCUT SCH (20:00)
[2025-03-18] MEDS: Magnesium Sulfat/D5W 1GM/100ML 100 ML ONE (20:21)
[2025-03-19] MEDS: CLOPIDOGREL 75 MG PO SCH (07:18)
[2025-03-19] MEDS: Aspirin 81 MG Tab.EC PO SCH (07:18)
[2025-03-19] MEDS: Acetaminophen/oxyCODONE 325-5 MG Tab PO SCH (07:18)
[2025-03-19] MEDS: Enoxaparin 40 MG/0.4 ML Syringe SUBCUT SCH (07:20)
[2025-03-19] MEDS: [UNRECOGNIZED DRUG - OTHER] PO SCH (07:21)
[2025-03-19] MEDS: OMEPRAZOLE 20 MG PO SCH (07:22)
[2025-03-19] MEDS: Ferrous Gluconate 324 MG Tab PO SCH (07:47)
[2025-03-19] MEDS ORDERED: Ferrous Gluconate 324 MG Tab PO SCH (08:00)
[2025-03-19] MEDS: Ondansetron 4 MG Tab.DIS PO PRN (08:35)
[2025-03-19 09:33] LABS: ANION GAP 17.4 mmol/L (5.0-15.0); BUN/CREATININE RATIO 30.4 (6-25); CALCIUM 9.4 mg/dL (8.5-10.1); CARBON DIOXIDE,CO2 21.3 mmol/L (21.0-32.0); CREATININE 0.92 mg/dL (0.55-1.02); EST CRCL DRUG DOSING (CG) 53.13 mL/min; MAGNESIUM 2.2 mg/dL (1.8-2.4); PHOSPHORUS 5.9 mg/dL (2.5-4.9); POTASSIUM,K 4.7 mmol/L (3.5-5.1); TROPONIN I HIGH SENSITIVITY 21.1 pg/ml (<=60.4)
[2025-03-19] MEDS ORDERED: Calcium Acetate 667 MG Cap PO ONE (09:47)
[2025-03-19] MEDS: Calcium Carbonate/Vitamin D3 1500 MG-400 Units Tab PO SCH (10:37)
[2025-03-19] MEDS: Metoprolol Tartrate 25 MG Tab PO SCH ×2 (10:37→19:26)
[2025-03-19] MEDS: Furosemide 40 MG Tab PO SCH (10:38)
[2025-03-19] MEDS: Lisinopril 5 MG Tab PO SCH (14:46)
[2025-03-19] MEDS: Spironolactone 25 MG Tab PO SCH (14:47)
[2025-03-19] MEDS: Lisinopril 5 MG Tab PO ONE (17:05)
[2025-03-19] MEDS: Acetaminophen 325 MG Tab PO PRN (17:56)
[2025-03-20 11:19] LABS: HEMATOCRIT 28.6 % (37.0-47.0); HEMOGLOBIN 9.3 g/dL (11.5-16.5); MEAN CORPUSCULAR HEMOGLOBIN 27.7 pg (27.0-32.0); MEAN CORPUSCULAR HGB CONC 32.5 g/dL (31.0-35.0); MEAN PLATELET VOLUME 9.7 fL (6.0-10.0); RED BLOOD CELL COUNT 3.36 M/uL (3.80-5.80); RED CELL DISTRIBUTION WIDTH 15.8 % (11.0-16.0)
[2025-03-20 11:44] LABS: ANION GAP 11.6 mmol/L (5.0-15.0); CARBON DIOXIDE,CO2 25.1 mmol/L (21.0-32.0); CREATININE 0.87 mg/dL (0.55-1.02); EST CRCL DRUG DOSING (CG) 55.1 mL/min; POTASSIUM,K 4.7 mmol/L (3.5-5.1)
[2025-03-20] MEDS: Lisinopril 5 MG Tab PO SCH (20:45)
[2025-03-21 09:06] LABS: ANION GAP 15.3 mmol/L (5.0-15.0); BUN/CREATININE RATIO 28.9 (6-25); CALCIUM 9.6 mg/dL (8.5-10.1); CARBON DIOXIDE,CO2 24.3 mmol/L (21.0-32.0); CREATININE 0.76 mg/dL (0.55-1.02); EST CRCL DRUG DOSING (CG) 62.44 mL/min; MAGNESIUM 1.6 mg/dL (1.8-2.4); PHOSPHORUS 5.7 mg/dL (2.5-4.9); POTASSIUM,K 5.6 mmol/L (3.5-5.1); TROPONIN I HIGH SENSITIVITY 19.7 pg/ml (<=60.4)
[2025-03-21] MEDS: Sodium Polystyrene Sulfonate 15 GM/60 ML Susp 60 ML Bot PO ONE (10:49)
[2025-03-21] MEDS: Magnesium Oxide 400 MG Tab PO SCH (10:49)
[2025-03-21] MEDS: Carvedilol 3.125 MG Tab PO SCH (16:28)
[2025-03-21] MEDS: metFORMIN 1,000 MG Tab PO SCH (20:12)
[2025-03-22] MEDS: Spironolactone 25 MG Tab PO SCH (07:45)
[2025-03-22] MEDS: Metoprolol Tartrate 25 MG Tab PO SCH (09:06)
[2025-03-22 12:16] LABS: ANION GAP 10.9 mmol/L (5.0-15.0); BUN/CREATININE RATIO 22.7 (6-25); CALCIUM 9.5 mg/dL (8.5-10.1); CARBON DIOXIDE,CO2 30.3 mmol/L (21.0-32.0); CREATININE 0.97 mg/dL (0.55-1.02); EST CRCL DRUG DOSING (CG) 48.6 mL/min; POTASSIUM,K 5.2 mmol/L (3.5-5.1)
[2025-03-23 10:39] VITALS: BP 119/53; PULSE 80
== END 2025-03-23 11:40 | disposition home or self-care (01) | DRG 641 ==
LOC: LB.ED 14:14 → LB.MS 17:50 → OBSVTOIN 03-21 09:32
PROVIDERS: ADMIT Surgery; ATTEND Surgery
DX: E87.70 Fluid overload, unspecified (principal); J90 Pleural effusion, not elsewhere classified; R00.1 Bradycardia, unspecified; I16.0 Hypertensive urgency; E78.00 Pure hypercholesterolemia, unspecified; I10 Essential (primary) hypertension; J44.9 Chronic obstructive pulmonary disease, unspecified; Z91.09 Other allergy status, other than to drugs and biological substances; K21.9 Gastro-esophageal reflux disease without esophagitis; M54.9 Dorsalgia, unspecified; G89.29 Other chronic pain; E83.42 Hypomagnesemia; E11.9 Type 2 diabetes mellitus without complications; Z98.49 Cataract extraction status, unspecified eye; Z88.8 Allergy status to other drugs, medicaments and biological substances; Z91.018 Allergy to other foods; Z95.5 Presence of coronary angioplasty implant and graft; Z79.84 Long term (current) use of oral hypoglycemic drugs; Z87.440 Personal history of urinary (tract) infections; Z79.899 Other long term (current) drug therapy; Z79.891 Long term (current) use of opiate analgesic; Z79.82 Long term (current) use of aspirin; Z79.02 Long term (current) use of antithrombotics/antiplatelets; Z79.4 Long term (current) use of insulin; Z98.890 Other specified postprocedural states; Z90.49 Acquired absence of other specified parts of digestive tract; Z90.710 Acquired absence of both cervix and uterus; Z95.1 Presence of aortocoronary bypass graft; Z87.891 Personal history of nicotine dependence
CPT/HCPCS: 36415; 71045; 71275; 80048; 82947; 83735; 83880; 84100; 84484; 85027; 85379; 93005; 93010; 94640; 96365; 96366; 96372; 96375; 96376; 99222; 99232; 99239; 99285-25; A9270-GY; G0378; J0360; J1650; J1815; J1815-GY; J1938; J2405; J3475; J7120; Q0162; Q9967